=== PATIENT | male | born 1965 | race African-American/Black ===

== ENCOUNTER 2022-07-28 17:19 | Emergency (ER) | payer MEDICAID ==
[~2022-07-28] VITALS: Ht 172.7 cm; Wt 57.0 kg
[2022-07-28 22:06] VITALS: BP 156/100
[2022-07-28] MEDS ORDERED: ONDANSETRON HCL 4MG/2ML INJ IV STA (22:06)
[2022-07-28] MEDS ORDERED: KETOROLAC 30MG/ML VIAL IV STA (22:06)
[2022-07-28] MEDS ORDERED: MAGNESIUM/ALUMINUM HYDROXIDE/SIMETHICONE 30ML UDC PO ONE (22:15)
[2022-07-28] MEDS ORDERED: SODIUM CHLORIDE 0.9% 1,000 ML IV ONE (22:15)
[2022-07-29 00:49] LABS: BASOPHILS % 0.4 % (0.0-2.0); HEMATOCRIT. 28.4 % (42.0-52.0); HEMOGLOBIN. 9.8 g/dL (14.0-18.0); LYMPHOCYTES % 12.4 % (20.0-50.0); MEAN CORPUSCULAR HEMOGLOBIN 31.5 pg (28.0-32.0); MEAN CORPUSCULAR VOLUME 91.4 fL (80.0-94.0); MEAN PLATELET VOLUME 10.5 fl (7.4-10.4); MONOCYTES % 10.9 % (2.0-8.0); NEUTROPHILS % 76.3 % (40.0-76.0); PLATELET 104 x1000/uL (130-400); RED BLOOD CELL COUNT 3.11 mill/uL (4.7-6.1)
[2022-07-29 00:51] LABS: CHLORIDE 95 mEq/L (98-107)
[2022-07-29 00:58] LABS: AMYLASE 133 IU/L (25-115)
[2022-07-29] MEDS ORDERED: ONDANSETRON HCL 4MG/2ML INJ IV ONE (01:45)
[2022-07-29] MEDS ORDERED: PANTOPRAZOLE 40MG DR TABLET PO ONE (01:45)
[2022-07-29] MEDS ORDERED: SODIUM CHLORIDE 0.9% 1,000 ML IV ONE (01:45)
[2022-07-29] MEDS ORDERED: ONDA4TAB50 MT (02:47)
[2022-07-29] MEDS ORDERED: PROT40 MT (02:47)
== END 2022-07-29 03:41 | disposition home or self-care (01) ==
LOC: ER 17:19
DX: F10.20 Alcohol dependence, uncomplicated (principal); R11.2 Nausea with vomiting, unspecified; R10.13 Epigastric pain; D64.9 Anemia, unspecified; E11.9 Type 2 diabetes mellitus without complications; I10 Essential (primary) hypertension; F17.290 Nicotine dependence, other tobacco product, uncomplicated; F12.10 Cannabis abuse, uncomplicated
CPT/HCPCS: 36415; 74176; 76705; 80053; 82150; 82962; 83690; 85025; 93005; 96361; 96374; 96375; 96376; 99285; J1885; J2405; J7030